=== PATIENT | female | born 1950 | race Caucasian/White ===

== ENCOUNTER 2016-11-26 13:24 | Emergency (ER) | payer OTHER ==
--- NOTE | ~2016-11-26 | CR172 ---
[facility] A Service of [facility] RADIOLOGY TEXT RESULTS PATIENT: KRISH CORBETT LOCATION: [facility] : 54 UNIT #: [id number] AGE: [address]: Kenzie Aragon SEX: F ORDER DR: [id number] [facility]. [place], [place] [address] [id number] MR#: [id number] Acc #: [id number] NAME: KRISH CORBETT : 1950 SEX: F STUDY DATE/TIME: 11/26/2016 13:06 UNIT: [facility] ROOM: STUDY DESCRIPTION: CR Knee 3 Views Lt Attending Physician: Kenzie Aragon Pa-C Ordering Physician: Kenzie Aragon Pa-C Primary Care Physician: Geri Gregory M.D. MEDICAL IMAGING REPORT This report is preliminary unless electronic signature is present EXAM Left knee, 3 views, 11/26/2016, 1306 hours. CLINICAL HISTORY 66-year-old who fell on concrete today complaining of left frontal knee pain with laceration. COMPARISON None FINDINGS AP, lateral, and sunrise views are performed with gauze dressing anteriorly. This results in artifact. There is no definite joint effusion or fracture. No foreign body other than the gauze is seen. There appears to be an open wound along the proximal pole of the patella. IMPRESSION 1. No joint effusion, fracture, or loose body seen. 2. There is gauze dressing and open wound anteriorly at the proximal pole of patella near the quadriceps insertion site. There is artifact in this area but no definite foreign body. Dictated by... Carole Alvarez M.D. THIS IS AN ELECTRONICALLY VERIFIED REPORT Carole Alvarez M.D. at 11/27/2016 9:25 AM MAX/gracia TD: 11/26/2016 15:22 JOB #: [id number] [facility] A Service of [facility] RADIOLOGY TEXT RESULTS PATIENT: KRISH CORBETT LOCATION: [facility] #: [id number] : 54 UNIT #: [id number] AGE: [address]: Kenzie Aragon SEX: F ORDER DR: MEDICAL IMAGING REPORT COPY
[~2016-11-26 13:24] MED LIST: ASPIRIN81 M2 PO; BUSPIRONE HCL10 MG PO; CALCIUM + D3 E1 EACH PO; COMBIVENT MININEB INH; GABAPENTIN600 MG PO; HUMIBID-LA600 MG PO; LOPRESSOR PO; MIRAPEX1 MG PO; NORVASC PO; PREDNISONE PO; SERTRALINE HCL50 M1 PO; SPIRIVA18 MCG INH; SYMBICORT INH
== END 2016-11-26 15:31 | disposition home or self-care (01) ==
LOC: CFTX 13:24
DX: S81.012A Laceration without foreign body, left knee, initial encounter (principal); Z87.891 Personal history of nicotine dependence; X58.XXXA Exposure to other specified factors, initial encounter; Y92.009 Unspecified place in unspecified non-institutional (private) residence as the place of occurrence of the external cause
CPT/HCPCS: 12032; 73562; 90715; 99283